=== PATIENT | female | born 1960 | race Caucasian/White ===

== ENCOUNTER → 2017-04-10 | Outpatient (CLI) | payer OTHER | LOC: BMCIMAGING 16:37 | PROVIDERS: ATTEND Internal Medicine Rheumatology | DX: Z13.828 Encounter for screening for other musculoskeletal disorder (principal); M16.12 Unilateral primary osteoarthritis, left hip ==

== ENCOUNTER → 2017-05-02 | Outpatient (CLI) | payer OTHER | LOC: FIMAGING 12:07 | PROVIDERS: ATTEND Internal Medicine | DX: Z12.31 Encounter for screening mammogram for malignant neoplasm of breast (principal) | CPT/HCPCS: G0202 ==

== ENCOUNTER → 2017-05-05 | Outpatient (CLI) | payer OTHER | LOC: BRMIMAGING 13:58 | PROVIDERS: ATTEND Internal Medicine | DX: Z13.820 Encounter for screening for osteoporosis (principal); M85.80 Other specified disorders of bone density and structure, unspecified site ==

== ENCOUNTER → 2018-04-09 | Outpatient (CLI) | payer OTHER | LOC: BMCIMAGING 15:56 | PROVIDERS: ATTEND Internal Medicine Rheumatology | DX: M16.12 Unilateral primary osteoarthritis, left hip (principal) ==

== ENCOUNTER → 2018-04-20 | Outpatient (CLI) | payer OTHER | LOC: FIMAGING 15:39 | PROVIDERS: ATTEND Internal Medicine | DX: Z12.31 Encounter for screening mammogram for malignant neoplasm of breast (principal) ==